=== PATIENT | female | born 1930 | race Caucasian/White ===

== ENCOUNTER 2017-06-20 13:30 | Observation (INO) | payer MEDICARE, MEDICAID ==
[~2017-06-20] VITALS: Ht 152.4 cm; Wt 39.6 kg
[~2017-06-20 13:30] MED LIST: AEROSOL THERAPY1 DEV XX; ALDACTONE 25MG25 MG PO; ALDACTONE25 MG PO; AMOXICILLIN500 M2 PO; ASPIRIN 81MG TA81 MG PO; ASPIRIN325 M1 PO; B-12500 MCG PO; BISOPROLOL 5MG T5 MG PO; CARDIZEM CD120 MG PO; CEFTIN500 MG PO; CEPHALEXIN MON500 MG PO; CEPHALEXIN500 MG PO; CHEWABLE ASPIRI81 MG PO; CLARITHROMYCIN500 M2 PO; CLARITIN10 MG OR; CORAL CALCIUM 51 CAP PO; CREON 120000 U-1 ECC PO; DIGOXIN0.125 MG PO; DILTIAZEM CD120 MG PO; DILTIAZEM ER 1120 MG PO; DILTIAZEM120 MG PO; DILTIAZEM30 MG PO; DIOVAN80 MG PO; DYAZIDE CAP (M1 EACH PO; FERREX 150150 MG PO; FERROUS SULFAT325 M1 PO; FERROUS SULFAT325 M2 PO; FORTICAL200 IU/ACT IH; FUROSEMIDE 20MG20 MG PO; HYDROCHLOROTH12.5 M1 PO; HYDROCHLOROTHIA25 M1 PO; IMDUR 30MG. TAB30 MG PO; INCRUSE EL62.5 MCG/A IH; ISOSORBIDE MONO30 MG PO; Isosorbide Mono60 MG PO; KLOR-CON 1010 ME1 PO; KLOR-CON 1010 MEQ PO; LEADER NATURA500 MCG PO; LEVAQUIN500 MG PO; LEVOTHYROXIN0.075 M1 PO; LORATADINE 10MG10 M1 PO; LORATADINE10 M1 PO; MAG-OX 400MG T400 MG PO; MAXZIDE 25 MG-31 TAB PO; MEDROL 4MG. DOSE4 MG PO; METOCLOPRAMIDE5 MG PO; METROGEL VA; MIRALAX17 GM/PACK PO; MUCINEX600 MG PO; MULTI VITAMINS1 TAB PO; MULTI-DAY VITA1 EACH PO; MULTIVITAMIN1 TAB PO; NEURONTIN100 MG OR; NITROGLYCERIN0.4 M1 SL; NITROGLYCERIN0.4 MG SL; OMEPRAZOLE20 M1 PO; OMEPRAZOLE20 MG PO; OXYGEN4 IH; PERIDEX OR1 DOSE/473 MT; PERIDEX OR1 DOSE/473 PO; PHENERGAN 25MG.25 MG PR; PLAVIX75 MG PO; POTASSIUM CHLO10 ME3 PO; PREDNISONE 5MG.5 MG PO; PREDNISONE1 MG PO; PREDNISONE5 MG PO; PRILOSEC20 MG PO; PROBIOTIC1 EAC5 PO; PROMETHAZINE5 ML/UDC PO; ROSADAN 0.75% TP; SENNA LAXATIVE8.6 MG PO; SPIRIVA HA1 PUFF/INH IH; SYNTHROID0.075 MG PO; SYNTHROID0.088 M3 PO; TUDORZA PR400 MCG/Ac IH; VENTOLIN H0.09 MG/AC IH; VENTOLIN H0.09 MG/Ac IH; VIT B 12 OR; VIT D OR; VITAMIN D1000 IU PO; VITAMIN E 400400 IU PO; ZANTAC 150150 MG OR; ZITHROMAX 250M250 MG PO; [UNRECOGNIZED DRUG - OTHER] RC
[2017-06-20 13:31] VITALS: BP 149/64
--- NOTE | 2017-06-20 13:45 | Emergency Room Report ---
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 Clinical Suspician of Infection? Mental Status: Sepsis Risk: Have you (or family members/close friends) recently traveled outside the [place]? If Yes, where/when: Have you had exposure to infectious disease within the past month? TB? Other? Specify: 86 years old white female was brought to the ED because of low blood pressure upon arrival of EMS found her blood pressure 146MMHG. The patient is well known history of congestive heart failure she is on diuretics. She was having a bowel movement when she felt dizzy. He denies chest pain,PALPITATION, shortness of air or nausea. She has daily bowel movements today was a little difficult yet to use milk of magnesia. She denies vomiting coffee-ground emesis and melanotic stool or bleeding per rectum. HISTORY BY WHO HAS JUST ARRIVED : I was told that the patient was having a bowel movement and she almost passed out up from the daughter arrival she was diaphoretic she checked the blood pressure was 52 complaining of her chest being burning. Later on she vomited twice. The patient recovered and she remained stable in the limbus arrived. Source patient, RN notes reviewed, family, EMS Exam Limitations no limitations ALLERGIES Coded Allergies: diatrizoate sodium (From HYPAQUE) (Severe, Q-[id number]/THROAT 08/22/16) Influenza Virus Vaccines (Intermediate, I-ITCHING 08/22/16) levofloxacin (From LEVAQUIN) (Intermediate, I-RASH 08/22/16) Sulfa (Sulfonamide Antibiotics) (Mild, NA-NAUSEA/VOMITING 08/22/16) codeine (Mild, "HEADACHE" 08/22/16) mometasone furoate (From NASONEX) (08/22/16) Home Medications Active Scripts NEBULIZER (Compact Compressor Nebulizer) 1 UNIT XX UD #1 DEV Prov: 12/18/16 Isosorbide Mononitrate (Isosorbide Mononitrate ER) 30 MG PO DAILY #45 TAB Ref 2 Prov: 08/23/16 Reported Medications Device (Oxygen, WALL UNIT) 1 UNIT IH CONSTANT Spironolactone (Aldactone) 25 MG PO DAILY Levothyroxine Sodium (Synthroid) 0.088 MG PO DAILY Polyethylene Glycol 3350 (Miralax) 17 GM PO DAILY ALBUTEROL (Ventolin Hfa) 2 PUFFS IH Q6H6 Multivitamin (Multi-Day Vitamins) 1 EACH PO DAILY POTASSIUM CHL (Potassium Chloride) 10 MEQ PO BID Bacillus Coagulans (Probiotic) 1 EACH PO DAILY PROMETHAZINE W/CODEINE (Promethazine-Codeine Syrup) 5 ML PO Q6PRN PRN COUGH MAGNESIUM OXIDE (Magnesium Oxide) 400 MG PO QHS ASPIRIN (Aspirin) 81 MG PO DAILY UMECLIDINIUM BROMIDE (Incruse Ellipta) 62.5 MCG IH DAILY CYANOCOBALAMIN (VITAMIN B-12) (Vitamin B-12) 500 MCG PO DAILY CHOLECALCIFEROL (VITAMIN D3) (Vitamin D3) 1,000 IUNITS PO DAILY CHLORHEXIDINE GLUCONATE (PERIDEX 0.12% ORAL RINSE) 1 DOSE PO TIDP PRN ORAL LESIONS Ferrous Sulfate (Ferrous Sulfate 325MG) 325 MG PO BID NITROGLYCERIN (Nitrostat) 0.4 MG SL [id number] PRN CHEST PAIN DILTIAZEM HCL (Diltiazem 24HR ER) 240 MG PO DAILY Furosemide (Furosemide) 20 MG PO BID Loratadine (Loratadine 10MG Tablet) 10 MG PO DAILYP PRN ALLERGIES BISOPROLOL FUMARATE (Bisoprolol 5MG) 2.5 MG PO QHS AND NOON Metronidazole (Rosadan) 0.75 TP PRN PRN ROSACEA History Medical History General CAD? Yes Angina: Yes [place]: No Hypertension? Yes Hyperlipidemia? No CHF? No DVT? No PE? No COPD? Yes Asthma? No Anemia? No GERD? Yes Gastric ulcers? No GI Bleed? No Hernia? No Thyroid Problems? Yes Hypothyroidism? Yes CVA? Yes Seizures? No Diabetes? No Renal Insuffiency? Yes End Stage Renal Disease? No UTI? Yes Stones? No BPH? No GB Disease: No Nephritic Syndrome? No Asplenia? No Hepatitis? No Sickle Cell Disease? No Arthritis? Yes Migraines? No Cataracts? Yes Glaucoma? No MRSA? No HIV? No TB? No Anxiety? Yes Depression? Yes Cancer? Yes Site: SKIN CANCER More? Yes Additional hx: 1. AFIB 2. Positive MARY 3. Amaurosis Fugax Immunization Hx DT/Tetanus 5-10 Years Ago Flu [id number] Pneumonia Received In Past Surgical Hx Previous Surgery?Y LEFT BREAST BIOPSY RIGHT OVARIAN CYST SURGERY FOR POST Family History Family Hx Diabetes Yes CAD Yes Hypertension Yes Hyperlipidemia Yes Cancer Yes TB No Social History Smoking Hx Packs/day N/A Alcohol Alcohol: No Review of Systems All Other Systems Reviewed and Negative Constitutional no symptoms reported Eyes no symptoms reported ENT no symptoms reported. Respiratory see HPI, cough Cardiovascular no symptoms reported Gastrointestinal see HPI, constipation Genitourinary no symptoms reported. Musculoskeletal no symptoms reported Skin no symptoms reported Psychiatric/Neurological no symptoms reported Physical Exam Vital Signs Vital Signs Date Time Temp Pulse Resp B/P Pulse O2 O2 Flow FiO2 Ox Delivery Rate 06/20 1408 98.1 64 18 145/66 99 06/20 1400 64 145/66 06/20 1359 63 144/68 06/20 1359 60 146/54 06/20 1331 98.1 70 18 149/64 99 - WBC >12,000 or <4,000 or 10% bands? 2 or more SIRS Criteria Met? B/P:149/64 MAP: Creatinine >2.0? UA output<0.5ml/kg/hr for 2 hrs? Platelet count >100,000? Lactate >2.0mmol/1? INR >1.2 or PTT > than 60 sec? Evidence of Organ Dysfunction? Provider documented clinical suspician of infection? N Sepsis Criteria Count: 0 Sepsis Risk: Low Sepsis Risk General Appearance normal appearance, WD/WN Eye Exam - bilateral eye normal exam, bilateral eye PERRL, bilateral eye EOMI Ear, Nose, Throat hearing grossly normal, normal ENT inspection Neck normal inspection, non-tender, supple, full range of motion Respiratory Status Yes: trachea midline, chest symmetrical, non tender chest. No: respiratory distress. Lung Sounds bilateral: normal breath sounds, lungs clear. Cardiovascular normal exam, regular rate/rhythm, no peripheral edema, no gallop, no JVD, no murmur, no rub, normal peripheral pulses Peripheral Pulses Pulses normal Yes Gastrointestinal normal bowel sounds, normal exam, non tender, soft, no organomegaly Back normal inspection, no CVA tenderness, no vertebral tenderness Extremities non-tender, normal range of motion, normal inspection Rectal normal exam, normal rectal tone Nurse present during exam? 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 No Medical Decision Making LABS/Meds/Orders Pt receiving controlled substance in ED? No Results/Orders Laboratory Tests 06/20/17 1400: Sodium 136, Potassium 5.4 H, Chloride 98, Carbon Dioxide 34 H, BUN 50 H, Creatinine 1.4 H, Estimated Creat Clear 18 L, Estimated GFR (MDRD) 36 L, Glucose 100, Calcium 9.0, Magnesium 2.4 H, Total Bilirubin 0.3, AST 13 L, ALT 21, Alkaline Phosphatase 80, Creatine Kinase 19 L, CK-MB (CK-2) Rel Index 2.6, CK and CKMB Interp < 0.5, Troponin I < 0.02, Total Protein 6.5, Albumin 3.4, Globulin 3.1, Albumin/Globulin Ratio 1.1, WBC 10.5, RBC 3.87 L, Hgb 12.0 L, Hct 36.6 L, MCV 94.7, RDW 13.1, Plt Count 275, MPV 7.9, Gran % 72.7, Gran # 7.6 , Lymphocytes % 16.9, Monocytes % 9.0, Eosinophils % 1.2, Basophils % 0.2, Lymphocytes # 1.8, Monocytes # 0.9, Eosinophils # 0.1, Basophils # 0.0, PUBS MCHC 32.6, MCH 30.9 Current Medication Orders Sig/Anna Start time Last Medication Dose Route Stop Time Status Admin Sodium Chloride 1,000 ML .Q1H1M 06/20 1345 DC 06/20 IV 06/20 1445 1402 Sodium Chloride 10 ML PRN PRN 06/20 1345 AC IV 06/21 1338 Orders Procedure Date/time Status Decision to admit 06/20 1505 Active URINALYSIS/COMPLETE 06/20 1431 Active DRUG ABUSE SCREEN (10) 06/20 1431 Active ELECTROCARDIOGRAM REQUEST 06/[address] HEAD REQ 06/20 1337 Complete CHEST(2 VIEWS-NOT PORTABLE) 06/20 1337 Active ABDOMEN-FLAT & UPRIGHT 06/20 1337 Active ORTHOSTATIC B/P 06/20 1337 Active MAGNESIUM 06/20 1337 Complete CBC WITH AUTO DIFF 06/20 1337 Complete CARDIAC ENZYMES 06/20 1337 Complete CHEM 12 PROFILE 06/20 1337 Complete 12 LEAD EKG-BESSON (INITIAL) 06/20 UNK Active Departure Departure Time of Disposition 1342 Disposition Still a Patient Clinical Impression Primary Impression: Pre-syncope Secondary Impressions: Atypical chest pain Condition STABLE Referrals Pravin BRENNAN,Pamela Matthews (Family) Additional Instructions I discussed her KUB with Dr. Rice who agrees that the bowels are dilated but does not suggest an obstruction. I discussed with Dr Costello who agreed to observe her on clear liquids and rule her out for arrythmia and cardiac events. The patietn remained stable and admitted in a stable conditon. Dr. Mullen Discharge Counseling Counseled pt/family regarding diagnosis, medications/RX, home care, follow up needs ED Critical Care Critical Care No If Critical Care minutes are documented, the time involved in the performance of seperately reportable procedures was not counted toward critical care time documented. I directly delivered medical care to this critically ill and/or injured patient. Timely evaluation and treatment was necessary to address the significant organ system(s) dysfunction present in this patient.
[2017-06-20 14:11] LABS: LYMPH # 1.8 K/mm3 (0.7-4.5); LYMPH % 16.9 % (10-50.0)
[2017-06-20 14:31] LABS: BUN 50 mg/dL (7-18)
[2017-06-20 14:36] LABS: GFR (ESTIMATED) 36 ML/MIN (59-)
--- NOTE | 2017-06-20 14:58 | RADIOLOGY REPORT PS360 ---
CT HEAD W/O CONTRAST HISTORY: Presyncope PRESYNCOPE ORDERING PHYSICIAN: Fabricio Mullen MD PATIENT AGE: 86 years COMPARISON: None TECHNIQUE: Axial images obtained without contrast. Brain and bone windows reviewed. FINDINGS: No midline shift, mass effect, intracranial hemorrhage, hydrocephalus, or extra-axial fluid collection is evident. There are mild periventricular ischemic gliotic changes. The calvarium has an unremarkable appearance. Minimal opacification noted in some of the inferior mastoid air cells. The visualized paranasal sinuses are unremarkable. IMPRESSION: 1. No acute intracranial pathology. 2. Minimal mastoid sinus disease
--- NOTE | 2017-06-20 15:35 | RADIOLOGY REPORT PS360 ---
ABDOMEN-FLAT UPRIGHT HISTORY: Abdominal pain COPUGH AND PRESYNCOPE ORDERING PHYSICIAN: Fabricio Mullen MD PATIENT AGE: 86 years COMPARISON: None FINDINGS: There is nonspecific bowel gas pattern with gas-filled loops of small bowel and large bowel in the mid abdominal region. Gas is present within the colon. No free air. No acute bony anomalies. There is vascular calcification. IMPRESSION: Nonspecific bowel gas pattern without air-fluid levels. Possible ileus
--- NOTE | 2017-06-20 15:37 | RADIOLOGY REPORT PS360 ---
CHEST(2 VIEWS-NOT PORTABLE) HISTORY: COPUGH AND PRESYNCOPE ORDERING PHYSICIAN: Fabricio Mullen MD PATIENT AGE: 86 years COMPARISON: 12/17/2016 FINDINGS: Normal heart size. There is chronic blunting of the CP angle on both sides. Mitral valve annular calcifications are present. There are chronic changes in the right middle lobe with thickening of the major fissure inferiorly. There is kyphosis of the thoracic spine with mild wedging of several dorsal vertebral bodies unchanged. IMPRESSION: Chronic changes, no acute finding
[2017-06-20 16:12] VITALS: BP 163/64
[2017-06-20 16:15] VITALS: BP 163/64
--- NOTE | 2017-06-20 19:53 | HISTORY AND PHYSICAL REPORT ---
History and Physical ([facility]) Date of admission: 06/20/17 Chief complaint: This 86-year-old white female was admitted with a near syncopal episode. She states that she ate lunch today and then was going to the toilet and became ill and felt that she was going to pass out. Indeed she did black out. Her daughter tried to check her blood pressure and found it quite low. She did not vomit on her pulse, however the patient does tend to run a low pulse and a variable pulse. She has known coronary artery disease. She takes diltiazem and is open to all both of which affect her heart rate and rhythm, of course. She will occasionally skip a dose of the bisoprolol if her heart rate is found to be low. She also takes diuretic, both spironolactone and furosemide. Her studies in the emergency room did show evidence of some renal insufficiency and her potassium was elevated at 5.4. In addition to her cardiac issues she has some chronic obstructive pulmonary disease as well. Lately her breathing has been pretty good. Past Medical History: Medical History: CAD? Yes Angina: Yes [place]: No Hypertension? Yes Hyperlipidemia? Yes CHF? Yes DVT? No PE? No COPD? Yes Asthma? No Anemia? Yes (takes ferrous gluconate) GERD? Yes Gastric ulcers? No GI Bleed? Yes (suspected) Hernia? No Thyroid Problems? Yes (TSH low at 0.346 06/14/17) Hypothyroidism? Yes CVA? No (amaurosis fugax) Seizures? No Diabetes? No Renal Insuffiency? Yes UTI? Yes Stones? No BPH? No GB Disease: No Nephritic Syndrome? No Asplenia? No Hepatitis? No Sickle Cell Disease? No Arthritis? Yes Migraines? No Cataracts? Yes Glaucoma? No MRSA? No HIV? No TB? No Anxiety? Yes Depression? Yes Cancer? Yes Site: SKIN CANCER More? Yes Additional hx: 1. AFIB paroxysmal 2. Positive MARY 3. Amaurosis Fugax Additional medical history: -20-49 percent carotid stenosis bilaterally June 03, 2014 -October 19, 2012 CT scan "liver spleen pancreas and gallbladder appear grossly normal" -February 23, 2008 positive MARY - Gout with Uric Acid 7.8 on 06/14/2017 Surgical history: Previous Surgery?Y 1. LEFT BREAST BIOPSY 2. RIGHT OVARIAN CYST 3. SURGERY FOR POST hemorrhage Medications: Active Scripts NEBULIZER (Compact Compressor Nebulizer) 1 UNIT XX UD #1 DEV Prov: 12/18/16 Isosorbide Mononitrate (Isosorbide Mononitrate ER) 30 MG PO DAILY #45 TAB Ref 2 Prov: 08/23/16 Reported Medications Device (Oxygen, WALL UNIT) 1 UNIT IH CONSTANT Spironolactone (Aldactone) 25 MG PO DAILY Levothyroxine Sodium (Synthroid) 0.088 MG PO DAILY Polyethylene Glycol 3350 (Miralax) 17 GM PO DAILY ALBUTEROL (Ventolin Hfa) 2 PUFFS IH Q6H6 Multivitamin (Multi-Day Vitamins) 1 EACH PO DAILY POTASSIUM CHL (Potassium Chloride) 10 MEQ PO BID Bacillus Coagulans (Probiotic) 1 EACH PO DAILY PROMETHAZINE W/CODEINE (Promethazine-Codeine Syrup) 5 ML PO Q6PRN PRN COUGH MAGNESIUM OXIDE (Magnesium Oxide) 400 MG PO QHS ASPIRIN (Aspirin) 81 MG PO DAILY UMECLIDINIUM BROMIDE (Incruse Ellipta) 62.5 MCG IH DAILY CYANOCOBALAMIN (VITAMIN B-12) (Vitamin B-12) 500 MCG PO DAILY CHOLECALCIFEROL (VITAMIN D3) (Vitamin D3) 1,000 IUNITS PO DAILY CHLORHEXIDINE GLUCONATE (PERIDEX 0.12% ORAL RINSE) 1 DOSE PO TIDP PRN ORAL LESIONS Ferrous Sulfate (Ferrous Sulfate 325MG) 325 MG PO BID NITROGLYCERIN (Nitrostat) 0.4 MG SL Q6DIOSOT PRN CHEST PAIN DILTIAZEM HCL (Diltiazem 24HR ER) 240 MG PO DAILY Furosemide (Furosemide) 20 MG PO BID Loratadine (Loratadine 10MG Tablet) 10 MG PO DAILYP PRN ALLERGIES BISOPROLOL FUMARATE (Bisoprolol 5MG) 2.5 MG PO QHS AND NOON Metronidazole (Rosadan) 0.75 TP PRN PRN ROSACEA Allergies: Coded Allergies: diatrizoate sodium (From HYPAQUE) (Severe, E-[id number]/THROAT 08/22/16) Influenza Virus Vaccines (Intermediate, I-ITCHING 08/22/16) levofloxacin (From LEVAQUIN) (Intermediate, I-RASH 08/22/16) Sulfa (Sulfonamide Antibiotics) (Mild, NA-NAUSEA/VOMITING 08/22/16) codeine (Mild, "HEADACHE" 08/22/16) mometasone furoate (From NASONEX) (08/22/16) Family History: Family history: Postive for: CAD, HTN. Additional family history: 3 brothers and one sister. One son, 2 daughters Social History: Smoking Hx Tobacco: No Smoker: Never Smoker Type: Cigarettes Packs/day: 1 1/2 - 2 Packs Are you exposed to second hand No Alcohol: Alcohol: No Hx of Drug Use: Drug Use? No Patien't marital status is: spouse Patient's support system is: excellent (daughter) Review of Systems: Patient unresponsive? No Constitutional Positive for: weak, recent weight loss. No: chills, fatigue, lethargy, malaise. ENT No: mouth pain, nasal congestion, ear ringing, throat swelling, tongue swelling. Cardiovascular Positive for: STEPHEN, chest pain, edema, palpitations. Respiratory Positive for: dyspnea on exertion, shortness of air. No: hemoptysis, pleurisy, pneumonia, productive cough (sputum). GI Positive for: abdominal pain (bloating when she eats), anorexia. (female) No: frequency, vaginal bleeding. Skin Positive for: bruising, swelling. No: laceration, rash. Neurological Positive for: change in LOC, bowel dysfunction, dizziness, light headed, syncope , vision change, weakness. No: confusion, seizure. Immune/allergy Positive for: allergy. Eyes Positive for: vision loss. No: blurry vision, diploplia. Musculoskeletal Positive for: extremity swelling, joint pain, neck pain. Heme Positive for: bruising. Endocrine No: polydipsia. Psychiatric Positive for: anxious. No: agitation, confused, change in mental status. Physical Exam: Vital signs: 1ST Vital Signs Result Date Time Pulse Ox 99 06/20 1331 B/P 149/64 06/20 1331 Temp 98.1 06/20 1331 Pulse 70 06/20 1331 Resp 18 06/20 1331 O2 Delivery OXYGEN 06/20 1612 Exam: General appearance: alert, no acute distress Eyes: anicteric, PERRLA ENT: mucous membranes moist Neck: no JVD Cardiovascular: bradycardia Respiratory: clear to auscultation, no respiratory distress, diminished breath sounds ABD: soft, no tenderness, distended (slightly) Genitourinary: normal voiding & quantity Extremities: no peripheral edema (minimal at this time) Musculoskeletal: motor intact Skin: dry, intact Neuro: alert, no deficit, oriented, speech clear Lab data: Labs: Laboratory Tests 06/20/17 1400: Sodium 136, Potassium 5.4 H, Chloride 98, Carbon Dioxide 34 H, BUN 50 H, Creatinine 1.4 H, Estimated Creat Clear 18 L, Estimated GFR (MDRD) 36 L, Glucose 100, Calcium 9.0, Magnesium 2.4 H, Total Bilirubin 0.3, AST 13 L, ALT 21, Alkaline Phosphatase 80, Creatine Kinase 19 L, CK-MB (CK-2) Rel Index 2.6, CK and CKMB Interp < 0.5, Troponin I < 0.02, Total Protein 6.5, Albumin 3.4, Globulin 3.1, Albumin/Globulin Ratio 1.1, WBC 10.5, RBC 3.87 L, Hgb 12.0 L, Hct 36.6 L, MCV 94.7, RDW 13.1, Plt Count 275, MPV 7.9, Gran % 72.7, Gran # 7.6 , Lymphocytes % 16.9, Monocytes % 9.0, Eosinophils % 1.2, Basophils % 0.2, Lymphocytes # 1.8, Monocytes # 0.9, Eosinophils # 0.1, Basophils # 0.0, PUBS MCHC 32.6, MCH 30.9 Radiology results: Results: The ER doctor was concerned about her abdominal series but it was read as unremarkable by the radiologist Diagnosis(es): 1. Syncope Status: Acute 2. Chronic lung disease Status: Chronic 3. Paroxysmal atrial fibrillation Status: Chronic 4. Renal insufficiency Status: Chronic 5. Hyperkalemia Status: Acute 6. Vasovagal episode Plan: IV fluids. DC supplemental potassium. Adjust medications accordingly at 1953
[2017-06-20 20:00] VITALS: BP 158/63
[2017-06-20 20:15] VITALS: BP 158/63
[2017-06-20 23:51] VITALS: BP 155/62
[2017-06-21 04:24] VITALS: BP 133/45
[2017-06-21] MEDS ORDERED: LOSARTAN POTASS25 MG PO (08:21)
[2017-06-21 08:30] VITALS: BP 161/52
--- NOTE | 2017-06-21 08:32 | ACUTE CARE PROGRESS NOTE (QUA) ---
Progress Notes Subjective Date 06/21/17 Time 0735 Note Pt resting quietly in bed with daughter at bedside. She reports she is feeling better this morning, no further episodes. She has a productive cough, denies CP or SOB with O2 in place per NC. She tolerated breakfast of clear liquids well. She has been up to the bedside commode to void overnight without difficulty. Objective Findings Last VS-Temp:98.3 B/P:133/45 Pulse:53 Resp:18 SaO2:98 OXYGEN Last weight lbs:87 oz:6 K.633 Method:Bed Scales Vital Signs Date Time Temp Pulse Resp B/P Pulse O2 O2 Flow FiO2 Ox Delivery Rate 06/21 0700 2 06/21 0626 2 06/21 0626 98 OXYGEN 2 06/21 0600 2 06/21 0535 2 06/21 0424 98.3 53 18 133/45 98 OXYGEN 06/21 0302 2 06/21 0200 2 06/21 0104 2 06/20 2357 2 06/20 2351 2 06/20 2351 97.8 53 22 155/62 100 OXYGEN 2 06/20 2249 98 OXYGEN 2 06/20 2200 2 06/20 2100 2 06/20 2039 2 06/20 2039 2 06/20 2039 98 2 06/20 2039 98 OXYGEN 2 06/20 2015 98.4 58 24 158/63 98 2 06/20 2000 98.4 58 24 158/63 98 OXYGEN 06/20 1615 58 06/20 1615 97.9 58 28 163/64 06/20 1615 96 OXYGEN 06/20 1615 97.9 58 28 163/64 96 OXYGEN 06/20 1612 97.9 58 28 163/64 96 OXYGEN 06/20 1535 98.1 64 18 133/68 99 /14 1526 98.1 64 18 133/68 99 /14 1408 98.1 64 18 145/66 99 /14 1400 64 145/66 /14 1359 63 144/68 14 1359 60 146/54 06/20 1331 98.1 70 18 149/64 99 Exam General appearance: alert, awake, no acute distress Cardiovascular: normal peripheral pulses, irregular Respiratory: CTAB A&P, generally diminished ABD: non-distended, no rebound, soft, no tenderness, no guarding, no organomegaly, no palpable mass, bowel sounds present Extremities: moves all, no peripheral edema Neuro: alert, oriented, speech clear, no focal deficit Reviewed: vital signs, lab results, radiology report, nursing notes Assessment/Plan Problem List 1. Syncope Status: Acute 2. Chronic lung disease Status: Chronic 3. Paroxysmal atrial fibrillation Status: Chronic 4. Renal insufficiency Status: Chronic 5. Hyperkalemia Status: Acute 6. Vasovagal episode Patient condition Improving Plan: continue current care This inpt stay is expected to cross 2 MNs from start of care Yes (EVA MILLER APRN) Assessment/Plan Problem List 1. Syncope Status: Acute 2. Chronic lung disease Status: Chronic 3. Paroxysmal atrial fibrillation Status: Chronic 4. Renal insufficiency Status: Chronic 5. Hyperkalemia Status: Acute 6. Vasovagal episode 7. Dehydration This inpt stay is expected to cross 2 MNs from start of care No Comments: Patient feels better today, labs have improved, plan discharge home today with decreased dose of diuretics. Patient seems to have been over diuresed. Plan office f/u in 1 week. (Everett Haas MD) at 0831 at 0849
[2017-06-21] MEDS ORDERED: SPIRONOLACTONE25 M1 PO (08:54)
[2017-06-21] MEDS ORDERED: FUROSEMIDE20 MG PO (08:55)
[2017-06-21 09:55] VITALS: BP 161/52
--- OUTSIDE RECORDS SUMMARY | 2017-07-16 07:44 | External Medical Summary Rpt ---
Author Author , GEOFF TELLEZ Address Unknown Phone [email or web address] Team Providers Care Stretcher Operator Name Role Phone Zayra WALLER, Unavailable Unavailable Zayra Costello MD, Unavailable Unavailable Gila Joshi CARE MANAGEMENT ASSISTANT, Unavailable Unavailable Nimco Joshi APRN [facility] Unavailable Unavailable HOLDINGS, [facility] Unavailable Unavailable [facility]INGS, [facility] Unavailable Unavailable EQUIPME, [facility] Unavailable Unavailable EQUIPME, [facility] Purpose Continuity of Care Document - 12-31-2012 through 2016 Problems Code Diagnosis DOS Provider Status J449 CHRONIC 12-24-[address] [facility] [place] PULMONARY MEDICAL DISEASE UNS EQUIPME J439 EMPHYSEMA 12-16-2015 [facility]PEC[facility] 244.9 Hypothyroid [facility] 276.8 Hypokalemia [facility] [id number] Chest pain [facility] 427.9 Atrial [place] arrhythmia [facility] 486 Pneumonia [facility] 496 Acute [facility] chronic obstructive airways disease 518.89 Chronic [place] lung [facility] Allergies, Adverse Reactions, Alerts Type Drug Allergy Adverse Reaction to Substance Substance Reaction Severity Contrast Media, Unknown Unknown Iodine Related SULFA (sulfonamide) Unknown Unknown Codeine Unknown Unknown Trimethoprim Unknown Unknown Tetanus Toxoid Unknown Unknown Sulfamethoxazole Unknown Unknown Medications Na ND Rx Da Fi Fi Am Da Di Ph RX Ph St me C No te ll ll ou ys ag ar # ys at rm s nt no ma ic us Or Da si cy ia de te s n re d DI 51 07 0 No LT 07 -1 IA 90 4- Lo ZE 74 20 ng M 52 13 er 30 0 Ac MG ti ve TA BL ET Di 62 07 0 No go 58 -1 xi 40 3- Lo n 98 20 ng 0. 90 13 er 12 1 5M Ac G ti Ta ve bl et BI 00 07 2 No SO 18 -1 WI 50 2- Lo OL 77 20 ng OL 13 13 er 0 FU Ac MA ti RA ve TE 5 MG TA B WI 00 07 2 No ED 05 -1 NI 40 2- Lo SO 01 20 ng NE 72 13 er 0 10 Ac ti MG ve TA BL ET Di 62 07 0 No go 58 -1 xi 40 2- Lo n 99 20 ng 0. 00 13 er 25 1 MG Ac ti Ta ve bl et DI 51 07 2 No LT 07 -1 IA 90 2- Lo ZE 74 20 ng M 52 13 er 30 0 Ac MG ti ve TA BL ET MA 00 07 0 No GN 51 -1 ES 72 2- Lo IU 60 20 ng M 22 13 er [place] 5 LF Ac AT ti E ve 50 % AL SO 00 07 0 No DI 40 -1 UM 97 2- Lo 98 20 ng CH 43 13 er LO 7 RI Ac DE ti ve 0. 9% SO SATNAM TI ON BI 00 07 0 No SO 18 -1 WI 50 1- Lo OL 77 20 ng OL 13 13 er 0 FU Ac MA ti RA ve TE 5 MG TA B Gu 63 07 4 No ai 82 -1 fe 40 0- Lo ne 00 20 ng si 84 13 er n 0 LA Ac ti 60 ve 0M G Ta bl et SO 00 07 3 No DI 40 -1 UM 97 0- Lo 98 20 ng CH 30 13 er LO 9 RI Ac DE ti ve 0. 9% SO SATNAM TI ON PO 00 07 1 No TA 40 -0 SS 99 9- Lo IU 25 20 ng M 73 13 er CL 9 Ac 20 ti ve ME Q- 0. 45 % NA CL Di 62 07 0 No go 58 -0 xi 40 9- Lo n 98 20 ng 0. 90 13 er 12 1 5M Ac G ti Ta ve bl et Po 00 07 0 No ta 24 -0 ss 50 9- Lo iu 05 20 ng m 80 13 er Ch 1 lo Ac ri ti de ve 20 ME Q Ta bl e Po 00 07 5 No ta 24 -0 ss 50 9- Lo iu 05 20 ng m 80 13 er Ch 1 lo Ac ri ti de ve 20 ME Q Ta bl e PA 07 5 No TI -0 EN 9- Lo T' 20 ng S 13 er OW N Ac HO ti ME ve ME DS PO 00 07 0 No TA 40 -0 SS 97 9- Lo IU 07 20 ng M 52 13 er CL 6 Ac 20 ti ve ME Q/ 10 0 ML SO L SO 00 07 1 No DI 40 -0 UM 97 8- Lo 98 20 ng CH 30 13 er LO 9 RI Ac DE ti ve 0. 9% SO SATNAM TI ON AL 00 07 0 No BU 48 -0 TE 79 8- Lo RO 50 20 ng L 10 13 er GOODSON 1 L Ac 2. ti 5 ve MG /3 [address] SO [address] Sa 63 07 6 No li 80 -0 ne 70 8- Lo 10 20 ng Fl 07 13 er us 5 h Ac 10 ti ML ve Sy ri ng e MA 00 07 6 No PA 90 -0 P 41 8- Lo 32 98 20 ng 5 26 13 er MG 1 Ac TA ti BL ve ET SO 00 07 4 No SATNAM 00 -0 -M 90 8- Lo ED 03 20 ng RO 92 13 er L 8 40 Ac ti MG ve AL 66 07 6 No PI 55 -0 RI 30 8- Lo N 00 20 ng 32 10 13 er 5 1 MG Ac ti TA ve BL ET Di 62 07 4 No go 58 -0 xi 40 8- Lo n 98 20 ng 0. 90 13 er 12 1 5M Ac G ti Ta ve bl et DI 51 07 4 No LT 07 -0 IA 90 8- Lo ZE 74 20 ng M 52 13 er 30 0 Ac MG ti ve TA BL ET TR 51 07 6 No IA 07 -0 MT 90 8- Lo ER 93 20 ng EN 52 13 er E- 0 HC Ac TZ ti ve 37 .5 -2 5 MG CP Is 68 07 6 No os 08 -0 or 40 8- Lo bi 43 20 ng de 50 13 er 1 Mo Ac no ti ni ve tr at e 30 MG Ta SY 00 07 6 No NT 07 -0 HR 45 8- Lo OI 18 20 ng D 21 13 er 75 1 Ac MC ti G ve TA BL ET PA 51 07 6 No NT 07 -0 OP 90 8- Lo RA 05 20 ng ZO 12 13 er LE 0 Ac SO ti D ve DR 40 MG TA B MT 11 07 6 No RA 52 -0 LA 37 8- Lo X 26 20 ng PO 80 13 er WD 8 ER Ac ti PA ve CK ET SP 00 07 6 No IR 59 -0 IV 70 8- Lo A 07 20 ng 18 57 13 er 5 MC Ac G ti CP ve -H AN DI GUZMAN LE R LO 00 07 6 No VE 07 -0 NO 50 8- Lo X 62 20 ng 40 04 13 er 1 MG Ac /0 ti .4 ve ML SY RI NG E BI 00 07 3 No SO 18 -0 WI 50 8- Lo OL 77 20 ng OL 13 13 er 0 FU Ac MA ti RA ve TE 5 MG TA B Di 62 07 0 No go 58 -0 xi 40 8- Lo n 98 20 ng 0. 90 13 er 12 1 5M Ac G ti Ta ve bl et Sa 63 06 0 No li 80 -2 ne 70 1- Lo 10 20 ng Fl 07 13 er us 5 h Ac 10 ti ML ve Sy ri ng e SO 00 03 0 No DI 40 -2 UM 97 7- Lo 98 20 ng CH 30 13 er LO 9 RI Ac DE ti ve 0. 9% SO SATNAM TI ON Sa 63 03 0 No li 80 -2 ne 70 7- Lo 10 20 ng Fl 07 13 er us 5 h Ac 10 ti ML ve Sy ri ng e ON 00 03 0 No DA 64 -2 NS 16 7- Lo ET 08 20 ng RO 02 13 er N 5 HC Ac L ti 4 ve MG /2 ML AL Vital Signs 04-19-2013 13:00 Name Value Interpretat Reference Comment ion Range Body 97.5 [degF] Temperature BP 56 mm[Hg] Diastolic BP Systolic 131 mm[Hg] Heart 59 /min Rate/Pulse Respiratory 24 /min Rate 04-19-2013 11:26 Name Value Interpretat Reference Comment ion Range O2% 100 % 04-13-2013 03:04 Name Value Interpretat Reference Comment ion Range Height 154.94 cm Weight 41.731 kg Measured 04-13-2013 01:05 Name Value Interpretat Reference Comment ion Range Body 98.4 [degF] Temperature BP 98 mm[Hg] Diastolic BP Systolic 149 mm[Hg] Heart 72 /min Rate/Pulse O2% 93 % Respiratory 20 /min Rate Weight 0 [oz_av] Measured 03-27-2013 14:22 Name Value Interpretat Reference Comment ion Range BP 67 mm[Hg] Diastolic BP Systolic 125 mm[Hg] Heart 97 /min Rate/Pulse O2% 96 % Respiratory 20 /min Rate 03-27-2013 12:33 Name Value Interpretat Reference Comment ion Range BP 64 mm[Hg] Diastolic BP Systolic 113 mm[Hg] Heart 98 /min Rate/Pulse O2% 93 % Respiratory 20 /min Rate 03-27-2013 16:04 Name Value Interpretat Reference Comment ion Range Body 98.2 [degF] Temperature BP 71 mm[Hg] Diastolic BP Systolic 160 mm[Hg] Heart 76 /min Rate/Pulse O2% 92 % Respiratory 16 /min Rate 12-31-2012 13:25 Name Value Interpretat Reference Comment ion Range BP 67 mm[Hg] Diastolic BP Systolic 147 mm[Hg] Heart 84 /min Rate/Pulse O2% 96 % Respiratory 20 /min Rate Results Labs Lab Lab Date Result Refere Interp Status Commen Order Detail nces retati t Range on Magnesium SerPl-mCnc (04-17-2013 08:55) Magnesi 1.7 1.4-2.2 complet um 013 mg/dL ed SerPl-m 08:55 Cnc BASIC METABOLIC PANEL (04-17-2013 08:50) Glucose 164 74-106 complet 013 mg/dL ed Bld-mCn 08:50 c BUN 14 7-18 complet Bld-mCn 013 mg/dL ed c 08:50 Creat 0.9 0.6-1.0 complet SerPl-m 013 mg/dL ed Cnc 08:50 ESTIMAT 32 50-200 complet ED 013 ML/MIN ed CREATIN 08:50 INE CLEARAN CE GFR 60 59- complet (ESTIMA 013 ML/MIN ed SPARKLE) 08:50 Sodium 04-17- 139 136-145 complet SerPl-s 013 mmoL/L ed Cnc 08:50 Potassi 3.9 3.5-5.1 complet um 013 mmoL/L ed SerPl-s 08:50 Cnc Chlorid 103 98-107 complet e 013 mmoL/L ed SerPl-s 08:50 Cnc CO2 31 21.0-32 complet SerPl-s 013 mmoL/L .0 ed Cnc 08:50 Calcium 8.2 8.5-10. complet 013 mg/dL 1 ed SerPl-m 08:50 Cnc Digoxin SerPl-mCnc (04-17-2013 08:50) Digoxin 0.56 1.15-2. complet 013 ng/mL 56 ed SerPl-m 08:50 Cnc BASIC METABOLIC PANEL (04-16-2013 06:30) Glucose 04-16- 129 74-106 complet 013 mg/dL ed Bld-mCn 06:30 c BUN 04-16- 12 7-18 complet Bld-mCn 013 mg/dL ed c 06:30 Creat 04-16- 0.8 0.6-1.0 complet SerPl-m 013 mg/dL ed Cnc 06:30 ESTIMAT 04-16- 36 50-200 complet ED 013 ML/MIN ed CREATIN 06:30 INE CLEARAN CE GFR 69 59- complet (ESTIMA 013 ML/MIN ed SPARKLE) 06:30 Sodium 137 136-145 complet SerPl-s 013 mmoL/L ed Cnc 06:30 Potassi 4.1 3.5-5.1 complet um 013 mmoL/L ed SerPl-s 06:30 Cnc Chlorid 104 98-107 complet e 013 mmoL/L ed SerPl-s 06:30 Cnc CO2 29 21.0-32 complet SerPl-s 013 mmoL/L .0 ed Cnc 06:30 Calcium 8.1 8.5-10. complet 013 mg/dL 1 ed SerPl-m 06:30 Cnc CBC with AUTO DIFF (04-16-2013 06:30) WBC # 11-2 8.6 4.8-10. complet Bld 013 K/MM3 8 ed Auto 06:30 RBC # 11-2 3.37 4.2-5.4 complet Bld 013 M/mm3 ed Auto 06:30 Hgb 04-16-2 10.2 12.2-16 complet Bld-mCn 013 g/dL .2 ed c 06:30 Hct Fr 31.5 % 37.0-47 complet Bld 013 .0 ed 06:30 MCV RBC 04-16- 93.7 fl 82.2-97 complet 013 .8 ed 06:30 MCH RBC 04-16- 30.2 pg 27-31.2 complet Qn 013 ed Auto 06:30 MEAN 32.3 31.8-35 complet CORPUSC 013 g/dl .4 ed ULAR 06:30 HGB CONC RDW RBC 07-11-2 15.9 % 11.5-17 complet Auto 013 .5 ed 06:30 Platele 07-11-2 235 142-424 complet t Bld 013 K/mm3 ed Ql 06:30 Manual MEAN 07-11-2 7.7 fl 7.4-10. complet PLATELE 013 4 ed T 06:30 VOLUME Granulo 07-11-2 92.3 % 37.0-80 complet cytes 013 .0 ed Fr Bld 06:30 Auto LYMPH % 07-11-2 4.4 % 10-50.0 complet 013 ed 06:30 Monocyt 07-11-2 3.2 % 1.7-9.3 complet es Fr 013 ed Bld 06:30 Auto Eosinop 07-11-2 0.1 % 0.1-12. complet hil Fr 013 0 ed Bld 06:30 Auto Basophi 07-11-2 0.0 % 0.1-2.0 complet ls Fr 013 ed Bld 06:30 Auto Granulo 07-11-2 7.9 1.8-7.8 complet cytes # 013 K/mm3 ed Bld 06:30 Auto Lymphoc 07-11-2 0.4 0.7-4.5 complet ytes Fr 013 K/mm3 ed Bld 06:30 Auto Monocyt 07-11-2 0.3 0.1-1.0 complet es # 013 K/mm3 ed Bld 06:30 Auto Eosinop 07-11-2 0.0 0.0-0.4 complet hil # 013 K/mm3 ed Bld 06:30 Auto Basophi 07-11-2 0.0 0-0.2 complet ls # 013 K/MM3 ed Bld 06:30 Auto COMPREHENSIVE METABOLIC PANEL (04-15-2013 06:20) Glucose -10-2 130 74-106 complet 013 mg/dL ed Bld-mCn 06:20 c BUN 0710-2 12 7-18 complet Bld-mCn 013 mg/dL ed c 06:20 Creat 10-2 1.0 0.6-1.0 complet SerPl-m 013 mg/dL ed Cnc 06:20 ESTIMAT 04-15-2 29 50-200 complet ED 013 ML/MIN ed CREATIN 06:20 INE CLEARAN CE GFR 10-2 53 59- complet (ESTIMA 013 ML/MIN ed SPARKLE) 06:20 Sodium 134 136-145 complet SerPl-s 013 mmoL/L ed Cnc 06:20 Potassi 4.7 3.5-5.1 complet um 013 mmoL/L ed SerPl-s 06:20 Cnc Chlorid 102 98-107 complet e 013 mmoL/L ed SerPl-s 06:20 Cnc CO2 24 21.0-32 complet SerPl-s 013 mmoL/L .0 ed Cnc 06:20 Calcium 8.2 8.5-10. complet 013 mg/dL 1 ed SerPl-m 06:20 Cnc Prot 6.2 6.4-8.2 complet SerPl-m 013 gm/dL ed Cnc 06:20 Albumin 3.1 3.4-5.0 complet 013 gm/dL ed SerPl-m 06:20 Cnc Globuli 3.1 1.3-3.2 complet n 013 gm/dL ed Ser-mCn 06:20 c Albumin 1.0 UNK 1.1-1.8 complet /Glob 013 ed SerPl-m 06:20 Rto Bilirub 0.2 0.2-1.0 complet 013 mg/dL ed SerPl-m 06:20 Cnc AST 28 U/L 15-37 complet SerPl-c 013 ed Cnc 06:20 ALT 55 U/L 30-65 complet SerPl-c 013 ed Cnc 06:20 ALP 86 U/L 50-136 complet SerPl-c 013 ed Cnc 06:20 Amylase SerPl-cCnc (04-15-2013 06:20) Amylase 04-15- 103 U/L 25-115 complet 013 ed SerPl-c 06:20 Cnc LIPASE (04-15-2013 06:20) LIPASE 04-15- 176 U/L 73-393 complet 013 ed 06:20 CBC with AUTO DIFF (04-15-2013 06:20) WBC # 07-10-2 16.9 4.8-10. complet Bld 013 K/MM3 8 ed Auto 06:20 RBC # 07-10-2 3.67 4.2-5.4 complet Bld 013 M/mm3 ed Auto 06:20 Hgb 07-10-2 11.0 12.2-16 complet Bld-mCn 013 g/dL .2 ed c 06:20 Hct Fr 07-10-2 35.0 % 37.0-47 complet Bld 013 .0 ed 06:20 MCV RBC 07-10-2 95.3 fl 82.2-97 complet 013 .8 ed 06:20 MCH RBC 07-10-2 30.0 pg 27-31.2 complet Qn 013 ed Auto 06:20 MEAN 07-10-2 31.5 31.8-35 complet CORPUSC 013 g/dl .4 ed ULAR 06:20 HGB CONC RDW RBC 07-10-2 16.0 % 11.5-17 complet Auto 013 .5 ed 06:20 Platele 07-10-2 268 142-424 complet t Bld 013 K/mm3 ed Ql 06:20 Manual MEAN 07-10-2 8.1 fl 7.4-10. complet PLATELE 013 4 ed T 06:20 VOLUME Granulo 07-10-2 94.7 % 37.0-80 complet cytes 013 .0 ed Fr Bld 06:20 Auto LYMPH % 07-10-2 3.2 % 10-50.0 complet 013 ed 06:20 Monocyt 07-10-2 2.0 % 1.7-9.3 complet es Fr 013 ed Bld 06:20 Auto Eosinop 07-10-2 0.1 % 0.1-12. complet hil Fr 013 0 ed Bld 06:20 Auto Basophi 07-10-2 0.0 % 0.1-2.0 complet ls Fr 013 ed Bld 06:20 Auto Granulo 07-10-2 16.0 1.8-7.8 complet cytes # 013 K/mm3 ed Bld 06:20 Auto Lymphoc 07-10-2 0.5 0.7-4.5 complet ytes Fr 013 K/mm3 ed Bld 06:20 Auto Monocyt 07-10-2 0.4 0.1-1.0 complet es # 013 K/mm3 ed Bld 06:20 Auto Eosinop 07-10-2 0.0 0.0-0.4 complet hil # 013 K/mm3 ed Bld 06:20 Auto Basophi 0.0 0-0.2 complet ls # 013 K/MM3 ed Bld 06:20 Auto Potassium SerPl-sCnc (04-14-2013 14:00) Potassi 3.9 3.5-5.1 complet um 013 mmoL/L ed SerPl-s 14:00 Cnc BASIC METABOLIC PANEL (04-14-2013 06:30) Glucose 142 74-106 complet 013 mg/dL ed Bld-mCn 06:30 c BUN 7 mg/dL 7-18 complet Bld-mCn 013 ed c 06:30 Creat 0.9 0.6-1.0 complet SerPl-m 013 mg/dL ed Cnc 06:30 ESTIMAT 32 50-200 complet ED 013 ML/MIN ed CREATIN 06:30 INE CLEARAN CE GFR 60 59- complet (ESTIMA 013 ML/MIN ed SPARKLE) 06:30 Sodium 138 136-145 complet SerPl-s 013 mmoL/L ed Cnc 06:30 Potassi 2.9 3.5-5.1 Low complet um 013 mmoL/L alert ed SerPl-s 06:30 Cnc Chlorid 101 98-107 complet e 013 mmoL/L ed SerPl-s 06:30 Cnc CO2 28 21.0-32 complet SerPl-s 013 mmoL/L .0 ed Cnc 06:30 Calcium 8.4 8.5-10. complet 013 mg/dL 1 ed SerPl-m 06:30 Cnc CBC with AUTO DIFF (04-14-2013 06:30) WBC # 04-14- 11.7 4.8-10. complet Bld 013 K/MM3 8 ed Auto 06:30 RBC # 04-14- 3.63 4.2-5.4 complet Bld 013 M/mm3 ed Auto 06:30 Hgb 11.1 12.2-16 complet Bld-mCn 013 g/dL .2 ed c 06:30 Hct Fr 34.1 % 37.0-47 complet Bld 013 .0 ed 06:30 MCV RBC 07-09-2 93.9 fl 82.2-97 complet 013 .8 ed 06:30 MCH RBC 04-14-2 30.6 pg 27-31.2 complet Qn 013 ed Auto 06:30 MEAN 04-14-2 32.6 31.8-35 complet CORPUSC 013 g/dl .4 ed ULAR 06:30 HGB CONC RDW RBC 04-14-2 15.9 % 11.5-17 complet Auto 013 .5 ed 06:30 Platele 04-14-2 252 142-424 complet t Bld 013 K/mm3 ed Ql 06:30 Manual MEAN 2 7.9 fl 7.4-10. complet PLATELE 013 4 ed T 06:30 VOLUME Granulo 09-2 93.8 % 37.0-80 complet cytes 013 .0 ed Fr Bld 06:30 Auto LYMPH % 07-09-2 4.5 % 10-50.0 complet 013 ed 06:30 Monocyt 07-09-2 1.7 % 1.7-9.3 complet es Fr 013 ed Bld 06:30 Auto Eosinop 07-09-2 0.0 % 0.1-12. complet hil Fr 013 0 ed Bld 06:30 Auto Basophi 07-09-2 0.0 % 0.1-2.0 complet ls Fr 013 ed Bld 06:30 Auto Granulo 07-09-2 10.9 1.8-7.8 complet cytes # 013 K/mm3 ed Bld 06:30 Auto Lymphoc 07-09-2 0.5 0.7-4.5 complet ytes Fr 013 K/mm3 ed Bld 06:30 Auto Monocyt 07-09-2 0.2 0.1-1.0 complet es # 013 K/mm3 ed Bld 06:30 Auto Eosinop 07-09-2 0.0 0.0-0.4 complet hil # 013 K/mm3 ed Bld 06:30 Auto Basophi 07-09-2 0.0 0-0.2 complet ls # 013 K/MM3 ed Bld 06:30 Auto THYROID STIM HORMONE (04-13-2013 06:20) THYROID 07-08-2 0.39 0.358-3 complet STIM 013 uIU/ml .740 ed HORMONE 06:20 Digoxin SerPl-mCnc (07-08-2013 06:20) Digoxin 07-08-2 0.62 1.15-2. complet 013 ng/mL 56 ed SerPl-m 06:20 Cnc Amylase SerPl-cCnc (04-13-2013 06:20) Amylase -08-2 134 U/L 25-115 complet 013 ed SerPl-c 06:20 Cnc LIPASE (04-13-2013 06:20) LIPASE 08-2 222 U/L 73-393 complet 013 ed 06:20 COMPREHENSIVE METABOLIC PANEL (04-13-2013 01:25) Glucose 07-08-2 88 74-106 complet 013 mg/dL ed Bld-mCn 01:25 c BUN 08-2 8 mg/dL 7-18 complet Bld-mCn 013 ed c 01:25 Creat -08-2 0.8 0.6-1.0 complet SerPl-m 013 mg/dL ed Cnc 01:25 GFR 08-2 69 59- complet (ESTIMA 013 ML/MIN ed SPARKLE) 01:25 Sodium 08-2 132 136-145 complet SerPl-s 013 mmoL/L ed Cnc 01:25 Potassi 07-08-2 3.9 3.5-5.1 complet um 013 mmoL/L ed SerPl-s 01:25 Cnc Chlorid 08-2 95 98-107 complet e 013 mmoL/L ed SerPl-s 01:25 Cnc CO2 08-2 30 21.0-32 complet SerPl-s 013 mmoL/L .0 ed Cnc 01:25 Calcium -08-2 8.4 8.5-10. complet 013 mg/dL 1 ed SerPl-m 01:25 Cnc Prot -08-2 6.4 6.4-8.2 complet SerPl-m 013 gm/dL ed Cnc 01:25 Albumin 07-08-2 3.5 3.4-5.0 complet 013 gm/dL ed SerPl-m 01:25 Cnc Globuli -08-2 2.9 1.3-3.2 complet n 013 gm/dL ed Ser-mCn 01:25 c Albumin -08-2 1.2 UNK 1.1-1.8 complet /Glob 013 ed SerPl-m 01:25 Rto Bilirub 07-08-2 0.3 0.2-1.0 complet 013 mg/dL ed SerPl-m 01:25 Cnc AST 07-08-2 22 U/L 15-37 complet SerPl-c 013 ed Cnc 01:25 ALT 07-08-2 40 U/L 30-65 complet SerPl-c 013 ed Cnc 01:25 ALP 07-08-2 86 U/L 50-136 complet SerPl-c 013 ed Cnc 01:25 BNP Bld-mCnc (04-13-2013 01:25) BNP 07-08-2 19 0-100 complet Bld-mCn 013 pg/mL ed c 01:25 CBC with AUTO DIFF (04-13-2013 01:25) WBC # 07-08-2 5.9 4.8-10. complet Bld 013 K/MM3 8 ed Auto 01:25 RBC # 07-08-2 3.92 4.2-5.4 complet Bld 013 M/mm3 ed Auto 01:25 Hgb 07-08-2 11.8 12.2-16 complet Bld-mCn 013 g/dL .2 ed c 01:25 Hct Fr 07-08-2 36.7 % 37.0-47 complet Bld 013 .0 ed 01:25 MCV RBC 07-08-2 93.5 fl 82.2-97 complet 013 .8 ed 01:25 MCH RBC 07-08-2 30.0 pg 27-31.2 complet Qn 013 ed Auto 01:25 MEAN 07-08-2 32.0 31.8-35 complet CORPUSC 013 g/dl .4 ed ULAR 01:25 HGB CONC RDW RBC 07-08-2 15.7 % 11.5-17 complet Auto 013 .5 ed 01:25 Platele 07-08-2 242 142-424 complet t Bld 013 K/mm3 ed Ql 01:25 Manual MEAN 07-08-2 7.6 fl 7.4-10. complet PLATELE 013 4 ed T 01:25 VOLUME Granulo 07-08-2 69.0 % 37.0-80 complet cytes 013 .0 ed Fr Bld 01:25 Auto LYMPH % 07-08-2 23.0 % 10-50.0 complet 013 ed 01:25 Monocyt 07-08-2 7.0 % 1.7-9.3 complet es Fr 013 ed Bld 01:25 Auto Eosinop 07-08-2 0.6 % 0.1-12. complet hil Fr 013 0 ed Bld 01:25 Auto Basophi 07-08-2 0.4 % 0.1-2.0 complet ls Fr 013 ed Bld 01:25 Auto Granulo 07-08-2 4.1 1.8-7.8 complet cytes # 013 K/mm3 ed Bld 01:25 Auto Lymphoc 07-08-2 1.4 0.7-4.5 complet ytes Fr 013 K/mm3 ed Bld 01:25 Auto Monocyt 07-08-2 0.4 0.1-1.0 complet es # 013 K/mm3 ed Bld 01:25 Auto Eosinop 07-08-2 0.0 0.0-0.4 complet hil # 013 K/mm3 ed Bld 01:25 Auto Basophi 07-08-2 0.0 0-0.2 complet ls # 013 K/MM3 ed Bld 01:25 Auto COMPREHENSIVE METABOLIC PANEL (03-27-2013 12:40) Glucose 03-27-2 130 74-106 complet 013 mg/dL ed Bld-mCn 12:40 c BUN 21-2 13 7-18 complet Bld-mCn 013 mg/dL ed c 12:40 Creat 03-27-2 0.9 0.6-1.0 complet SerPl-m 013 mg/dL ed Cnc 12:40 ESTIMAT 03-27-2 32 50-200 complet ED 013 ML/MIN ed CREATIN 12:40 INE CLEARAN CE GFR 03-27-2 60 59- complet (ESTIMA 013 ML/MIN ed SPARKLE) 12:40 Sodium 03-27-2 136 136-145 complet SerPl-s 013 mmoL/L ed Cnc 12:40 Potassi 03-27-2 3.3 3.5-5.1 complet um 013 mmoL/L ed SerPl-s 12:40 Cnc Chlorid 03-27-2 101 98-107 complet e 013 mmoL/L ed SerPl-s 12:40 Cnc CO2 03-27-2 30 21.0-32 complet SerPl-s 013 mmoL/L .0 ed Cnc 12:40 Calcium 03-27-2 8.2 8.5-10. complet 013 mg/dL 1 ed SerPl-m 12:40 Cnc Prot 03-27-2 6.2 6.4-8.2 complet SerPl-m 013 gm/dL ed Cnc 12:40 Albumin 03-27-2 3.2 3.4-5.0 complet 013 gm/dL ed SerPl-m 12:40 Cnc Globuli 03-27-2 3.0 1.3-3.2 complet n 013 gm/dL ed Ser-mCn 12:40 c Albumin 03-27-2 1.1 UNK 1.1-1.8 complet /Glob 013 ed SerPl-m 12:40 Rto Bilirub 03-27-2 0.4 0.2-1.0 complet 013 mg/dL ed SerPl-m 12:40 Cnc AST 03-27-2 14 U/L 15-37 complet SerPl-c 013 ed Cnc 12:40 ALT 03-27-2 38 U/L 30-65 complet SerPl-c 013 ed Cnc 12:40 ALP 03-27-2 78 U/L 50-136 complet SerPl-c 013 ed Cnc 12:40 CBC with AUTO DIFF (03-27-2013 12:40) WBC # 21-2 6.3 4.8-10. complet Bld 013 K/MM3 8 ed Auto 12:40 RBC # 21-2 3.61 4.2-5.4 complet Bld 013 M/mm3 ed Auto 12:40 Hgb 03-27-2 10.9 12.2-16 complet Bld-mCn 013 g/dL .2 ed c 12:40 Hct Fr 03-27-2 33.4 % 37.0-47 complet Bld 013 .0 ed 12:40 MCV RBC 03-27-2 92.5 fl 82.2-97 complet 013 .8 ed 12:40 MCH RBC 03-27-2 30.2 pg 27-31.2 complet Qn 013 ed Auto 12:40 MEAN 03-27-2 32.6 31.8-35 complet CORPUSC 013 g/dl .4 ed ULAR 12:40 HGB CONC RDW RBC 03-27-2 15.6 % 11.5-17 complet Auto 013 .5 ed 12:40 Platele 03-27-2 263 142-424 complet t Bld 013 K/mm3 ed Ql 12:40 Manual MEAN 06-21-2 7.5 fl 7.4-10. complet PLATELE 013 4 ed T 12:40 VOLUME Granulo 06-21-2 77.8 % 37.0-80 complet cytes 013 .0 ed Fr Bld 12:40 Auto LYMPH % 06-21-2 16.1 % 10-50.0 complet 013 ed 12:40 Monocyt 06-21-2 5.5 % 1.7-9.3 complet es Fr 013 ed Bld 12:40 Auto Eosinop 06-21-2 0.3 % 0.1-12. complet hil Fr 013 0 ed Bld 12:40 Auto Basophi 06-21-2 0.3 % 0.1-2.0 complet ls Fr 013 ed Bld 12:40 Auto Granulo 06-21-2 4.9 1.8-7.8 complet cytes # 013 K/mm3 ed Bld 12:40 Auto Lymphoc 06-21-2 1.0 0.7-4.5 complet ytes Fr 013 K/mm3 ed Bld 12:40 Auto Monocyt 06-21-2 0.4 0.1-1.0 complet es # 013 K/mm3 ed Bld 12:40 Auto Eosinop 06-21-2 0.0 0.0-0.4 complet hil # 013 K/mm3 ed Bld 12:40 Auto Basophi 06-21-2 0.0 0-0.2 complet ls # 013 K/MM3 ed Bld 12:40 Auto URINALYSIS/COMPLETE (12-31-2012 14:00) URINE YELLOW YELLOW complet COLOR 013 ed 14:00 URINE CLEAR CLEAR complet APPEARA 013 ed NCE 14:00 URINE NEGATIV NEG complet GLUCOSE 013 E ed - 14:00 DIPSTIC K URINE NEGATIV NEG complet BILIRUB 013 E ed IN - 14:00 DIPSTIC K URINE NEGATIV NEG complet KETONE 013 E mg/dL ed 14:00 URINE Less 1.005-1 complet SPECIFI 013 than or .030 ed C 14:00 equal GRAVITY to 1.005 URINE TRACE-I NEG complet BLOOD 013 NTACT ed 14:00 URINE 7.5 UNK 5.0-8.5 complet PH 013 ed 14:00 URINE NEGATIV NEG complet PROTEIN 013 E mg/dL ed - 14:00 DIPSTIC K URINE 0.2 NEG complet UROBILI 013 E.U./dL ed NOGEN - 14:00 DIPSTIC K URINE NEGATIV NEG complet NITRATE 013 E ed - 14:00 DIPSTIC K URINE NEGATIV NEG complet LEUK 013 E ed ESTERAS 14:00 E URINE OCC 0 complet RBC 013 rbc/hpf ed 14:00 URINE OCC 0-5 complet SQUAMOU 013 #/hpf ed S CELLS 14:00 COMPREHENSIVE METABOLIC PANEL (12-31-2012 13:00) Glucose 98 74-106 complet 013 mg/dL ed Bld-mCn 13:00 c BUN 9 mg/dL 7-18 complet Bld-mCn 013 ed c 13:00 Creat 0.8 0.6-1.0 complet SerPl-m 013 mg/dL ed Cnc 13:00 ESTIMAT 38 50-200 complet ED 013 ML/MIN ed CREATIN 13:00 INE CLEARAN CE GFR 69 59- complet (ESTIMA 013 ML/MIN ed SPARKLE) 13:00 Sodium 133 136-145 complet SerPl-s 013 mmoL/L ed Cnc 13:00 Potassi 4.1 3.5-5.1 complet um 013 mmoL/L ed SerPl-s 13:00 Cnc Chlorid 99 98-107 complet e 013 mmoL/L ed SerPl-s 13:00 Cnc CO2 28 21.0-32 complet SerPl-s 013 mmoL/L .0 ed Cnc 13:00 Calcium 8.5 8.5-10. complet 013 mg/dL 1 ed SerPl-m 13:00 Cnc Prot 6.4 6.4-8.2 complet SerPl-m 013 gm/dL ed Cnc 13:00 Albumin 3.2 3.4-5.0 complet 013 gm/dL ed SerPl-m 13:00 Cnc Globuli 03-27-2 3.2 1.3-3.2 complet n 013 gm/dL ed Ser-mCn 13:00 c Albumin 12-31-2 1.0 UNK 1.1-1.8 complet /Glob 013 ed SerPl-m 13:00 Rto Bilirub 12-31-2 0.4 0.2-1.0 complet 013 mg/dL ed SerPl-m 13:00 Cnc AST 12-31-2 51 U/L 15-37 complet SerPl-c 013 ed Cnc 13:00 ALT 12-31-2 72 U/L 30-65 complet SerPl-c 013 ed Cnc 13:00 ALP 12-31-2 100 U/L 50-136 complet SerPl-c 013 ed Cnc 13:00 Digoxin SerPl-mCnc (12-31-2012 13:00) Digoxin 12-31-2 0.13 1.15-2. complet 013 ng/mL 56 ed SerPl-m 13:00 Cnc Amylase SerPl-cCnc (12-31-2012 13:00) Amylase 2 121 U/L 25-115 complet 013 ed SerPl-c 13:00 Cnc LIPASE (12-31-2012 13:00) LIPASE 223 U/L 73-393 complet 013 ed 13:00 CBC with AUTO DIFF (12-31-2012 13:00) WBC # 12-31-2 5.3 4.8-10. complet Bld 013 K/MM3 8 ed Auto 13:00 RBC # 12-31-2 3.90 4.2-5.4 complet Bld 013 M/mm3 ed Auto 13:00 Hgb 12-31-2 12.4 12.2-16 complet Bld-mCn 013 g/dL .2 ed c 13:00 Hct Fr 12-31-2 37.1 % 37.0-47 complet Bld 013 .0 ed 13:00 MCV RBC 12-31-2 94.9 fl 82.2-97 complet 013 .8 ed 13:00 MCH RBC 12-31-2 31.7 pg 27-31.2 complet Qn 013 ed Auto 13:00 MEAN 12-31-2 33.4 31.8-35 complet CORPUSC 013 g/dl .4 ed ULAR 13:00 HGB CONC RDW RBC 03-27-2 13.4 % 11.5-17 complet Auto 013 .5 ed 13:00 Platele 237 142-424 complet t Bld 013 K/mm3 ed Ql 13:00 Manual MEAN 8.1 fl 7.4-10. complet PLATELE 013 4 ed T 13:00 VOLUME Granulo 69.6 % 37.0-80 complet cytes 013 .0 ed Fr Bld 13:00 Auto LYMPH % 23.1 % 10-50.0 complet 013 ed 13:00 Monocyt 6.1 % 1.7-9.3 complet es Fr 013 ed Bld 13:00 Auto Eosinop 2 0.9 % 0.1-12. complet hil Fr 013 0 ed Bld 13:00 Auto Basophi 2 0.3 % 0.1-2.0 complet ls Fr 013 ed Bld 13:00 Auto Granulo 3.7 1.8-7.8 complet cytes # 013 K/mm3 ed Bld 13:00 Auto Lymphoc 2 1.2 0.7-4.5 complet ytes Fr 013 K/mm3 ed Bld 13:00 Auto Monocyt 12-31-2 0.3 0.1-1.0 complet es # 013 K/mm3 ed Bld 13:00 Auto Eosinop 12-31-2 0.1 0.0-0.4 complet hil # 013 K/mm3 ed Bld 13:00 Auto Basophi 2 0.0 0-0.2 complet ls # 013 K/MM3 ed Bld 13:00 Auto Procedures Procedure DOS Code Location Performer Comment PRTBLE [id number] KALANI URIARTE GASEOUS 6 HOME HOME O2 SYS MEDICAL MEDICAL RENT[facility]2 CONC 1 [id number] KALANI URIARTE [place] 6 HOME HOME 85%/>02 MEDICAL MEDICAL CONC AT EQUIPME EQUIPME [facility] FLW RATE BASIC 11816 [facility] METABOLIC 6 [facility] [employer] TOTAL Encounters Encounter Start End Date Code Location Performer Type Date Inpatient AMBERLY Costello MD ([place]) 3 01:18 3 13:15 [facility] DEONDRE Trimble MD (ER) 3 12:33 3 14:25 [facility] Emergency DEONDRE Peterson MD (ER) 3 12:47 3 16:06 [facility]
--- OUTSIDE RECORDS SUMMARY | 2017-07-16 07:44 | External Medical Summary Rpt ---
Author Author , GEOFF TELLEZ Address Unknown Phone [email or web address] Care Team Providers Care Stone Cutter Name Role Phone Zayra WALLER, Unavailable Unavailable Zayra Costello MD, Unavailable Unavailable Gila Joshi PRESERVATIVE FILLER MACHINE OPERATOR, Unavailable Unavailable Nimco Joshi APRN [facility] Unavailable Unavailable HOLDINGS, [facility] Unavailable Unavailable HOLDINGS, [facility] Unavailable Unavailable EQUIPME, [facility] Unavailable Unavailable EQUIPME, [facility] Purpose Continuity of Care Document - 12-31-2012 through 2016 Problems Code Diagnosis DOS Provider Status J449 CHRONIC 12-24-2015 [facility] OBSTRUCTIVE [place]ER PULMONARY MEDICAL DISEASE UNS EQUIPME J439 EMPHYSEMA 12-16-2015 [facility] UNSPECIFIED [facility] 244.9 Hypothyroid [facility] 276.8 Hypokalemia [facility] [id number] Chest pain [facility] 427.9 Atrial [place] arrhythmia [facility] 486 Pneumonia [facility] 496 Acute [facility] chronic obstructive airways disease 518.89 Chronic [place] lung [facility] Allergies, Adverse Reactions, Alerts Type Drug Allergy [...] 00 07 2 No SO 18 -1 DC 50 2- Lo OL 77 20 ng OL 13 13 er 0 FU Ac MA ti RA ve TE 5 MG TA B DC 00 07 2 No ED 05 -1 [...] 00 07 0 No SO 18 -1 DC 50 1- Lo OL 77 20 ng [...] D ve DR 40 MG TA B NC 11 07 6 No RA 52 -0 [...] 00 07 3 No SO 18 -0 DC 50 8- Lo OL 77 20 ng [...] O2 SYS MEDICAL MEDICAL RENT; EQUIPME [facility] ASK O2 CONC 1 E1390 [facility] [place] 6 HOME HOME 85%/>02 MEDICAL MEDICAL CONC AT EQUIPME EQUIPME [facility] FLW RATE BASIC 83992 LAB [facility] METABOLIC 6 [facility] PANEL HOLDINGS HOLDINGS CALCIUM TOTAL Encounters Encounter Start End Date Code Location Performer Type Date Inpatient AMBERLY Costello MD (IN) 3 01:18 3 13:15 [facility] Emergency DEONDRE Trimble MD (ER) 3 12:33 3 14:25 [facility] Emergency DEONDRE Peterson MD (ER) 3 12:47 3 16:06 [facility]
--- OUTSIDE RECORDS SUMMARY | 2017-07-16 07:45 | External Medical Summary Rpt ---
Author Author , GEOFF TELLEZ Address Unknown Phone [email or web address] Care [email or web address] Providers Care Desk Pen Set Assembler Name Role Phone [facility] Unavailable Unavailable HOLDINGS, [facility] Unavailable Unavailable HOLDINGS, [facility] Unavailable Unavailable EQUIPME, [facility] Unavailable Unavailable EQUIPME, [facility] Purpose Continuity of Care Document - 12-16-2015 through 2016 Problems Code Diagnosis DOS Provider Status J449 CHRONIC 12-24-2015 [facility] PULMONARY MEDICAL DISEASE UNS EQUIPME J439 EMPHYSEMA 12-16-2015 [facility] UNSPECIFIED [facility] Procedures Procedure DOS Code Location Performer Comment PRTBLE [id number] [facility] URIARTE GASEOUS 6 HOME HOME O2 SYS MEDICAL MEDICAL RENT; EQUIPME EQUIPME FLWMTR HUMIDFR&M ASK O2 CONC 1 E1390 [facility] [place] 6 HOME HOME 85%/>02 MEDICAL MEDICAL CONC AT EQUIPME EQUIPME [facility] FLW RATE BASIC 60032 LAB [facility] METABOLIC 6 [facility] PANEL HOLDINGS HOLDINGS CALCIUM TOTAL
--- OUTSIDE RECORDS SUMMARY | 2017-07-16 07:45 | External Medical Summary Rpt ---
Author Author [employer], [employer] Organization [employer] Address Unknown Phone Unavailable Results Basic metabolic panel in Blood Observa Value Referen Units Interpr Notes Date tion ce etation Range Urea 7 - 18 mg/dL High No Sep 15 nitrogen informati 2017 6:00 [Mass/vol on in AM ume] in source Serum or data Plasma Calcium 8.5 - mg/dL Normal No Sep 15 [Mass/vol 10.1 informati 2017 6:00 ume] in on in AM Serum or source Plasma data Chloride 98 - 107 mmoL/L Normal No Sep 15 [Moles/vo informati 2017 6:00 lume] in on in AM Serum or source Plasma data Carbon 21.0 - mmoL/L High No Sep 15 dioxide, 32.0 informati 2017 6:00 total on in AM [Moles/vo source lume] in data Serum or Plasma Creatinin 0.55 - mg/dL No No Sep 15 e 1.02 informati informati 2017 6:00 [Mass/vol on in on in AM ume] in source source Serum or data data Plasma Creatinin 50 - 200 ML/MIN Low No Sep 15 e renal informati 2017 6:00 clearance on in AM source predicted data by Cockcroft -Gault formula Estimated 59- ML/MIN Low REFERENCE Sep 15 RANGE: 2017 6:00 glomerula >60 AM r ML/MIN/1. filtratio 73 SQUARE n rate METERSIf (GF this patient is -A merican, then multiply theresult by 1.210. Glucose 74 - 106 mg/dL Low No Sep 15 [Mass/vol informati 2017 6:00 ume] in on in AM Serum or source Plasma data Potassium 3.5 - 5.1 mmoL/L Normal No Sep 15 informati 2017 6:00 [Moles/vo on in AM lume] in source Serum or data Plasma Sodium 136 - 145 mmoL/L Normal No Sep 15 [Moles/vo informati 2017 6:00 lume] in on in AM Serum or source Plasma data Troponin I.cardiac [Mass/volume] in Serum or Plasma Observa Value Referen Units Interpr Notes Date tion ce etation Range Troponin 0.00 - ng/mL Normal No Sep 15 I.cardiac 0.06 inform2016 2:35 on in AM [Mass/vol source ume] in data Serum or Plasma Thyrotropin [Units/volume] in Serum or Plasma Observa Value Referen Units Interpr Notes Date ti ce etation Range Thyrotrop 0.358 - uIU/ml No No Sep 14 in 3.740 informati informati 2016 8:02 [Units/vo on in on in PM lume] in source source Serum or data data Plasma Urate [Mass/volume] in Serum or Plasma Observa Value Referen Units Interpr Notes Date ti ce etation Range Urate 2.6 - 7.2 mg/dL High No Sep 14 [Mass/vol informati 2017 8:02 ume] in on in PM Serum or source Plasma data CBC W Auto Differential panel in Blood Observa Value Referen Units Interpr Notes Date tion ce etation Range Basophils 0 - 0.2 K/MM3 Normal No Sep 14 inform2016 2:00 [#/volume on in PM ] in source Blood by data Automated count Basophils 0.1 - 2.0 % Normal No Sep 14 /100 informati 2016 2:00 leukocyte on in PM s in source Blood by data Automated count Eosinophi 0.0 - 0.4 K/mm3 Normal No Sep 14 ls informati 2016 2:00 [#/volume on in PM ] in source Blood by data Automated count Eosinophi 0.1 - % Normal No Sep 14 ls/100 12.0 informati 2016 2:00 leukocyte on in PM s in source Blood by data Automated count Granulocy 1.8 - 7.8 K/mm3 Normal No Sep 14 carlos informati 2016 2:00 [#/volume on in PM ] in source Blood by data Automated count Granulocy 37.0 - % Normal No Sep 14 carlos/100 80.0 informati 2016 2:00 leukocyte on in PM s in source Blood by data Automated count Hematocri 37.0 - % Low No Sep 14 t [Volume 47.0 informati 2016 2:00 on in PM Fraction] source of Blood data Hemoglobi 12.2 - g/dL Low No Sep 14 n 16.2 informati 2017 2:00 [Mass/vol on in PM ume] in source Blood data Lymphocyt 0.7 - 4.5 K/mm3 Normal No Sep 14 es inform 2017 2:00 [#/volume on in PM ] in source Unspecifi data ed specimen by Automated count Lymphocyt 10 - 50.0 % Normal No Sep 14 es inform 2017 2:00 [#/volume on in PM ] in source Unspecifi data ed specimen by Automated count Erythrocy 27 - 31.2 pg Normal No Sep 14 te mean informati 2017 2:00 corpuscul on in PM ar source hemoglobi data n [Entitic mass] Erythrocy 31.8 - g/dl Normal No Sep 14 te mean 35.4 informati 2017 2:00 corpuscul on in PM ar source hemoglobi data n concentra tion [Mass/vol ume] by Automated count Erythrocy 82.2 - fl Normal No Sep 14 te mean 97.8 informati 2016 2:00 corpuscul on in PM ar volume source [Entitic data volume] by Automated count Monocytes 0.1 - 1.0 K/mm3 Normal No Sep 14 inform2016 2:00 [#/volume on in PM ] in source Blood by data Automated count Monocytes 1.7 - 9.3 % Normal No Sep 14 /100 informati 2017 2:00 leukocyte on in PM s in source Blood by data Automated count Platelet 7.4 - fl Normal No Sep 14 mean 10.4 informati 2016 2:00 volume on in PM [Entitic source volume] data in Blood by Automated count Platelets 142 - 424 K/mm3 No No Sep 14 informati informati 2017 2:00 [#/volume on in on in PM ] in source source Blood data data Erythrocy 4.2 - 5.4 M/mm3 Low No Sep 14 carlos informati 2017 2:00 [#/volume on in PM ] in source Amniotic data fluid Erythrocy 11.5 - % Normal No Sep 14 te 17.5 informati 2016 2:00 distribut on in PM ion width source [Entitic data volume] by Automated count Leukocyte 4.8 - K/MM3 Normal No Sep 14 s 10.8 informati 2016 2:00 [#/volume on in PM ] in source Blood data
--- OUTSIDE RECORDS SUMMARY | 2017-07-16 07:45 | External Medical Summary Rpt ---
Author Author , GEOFF TELLEZ Address Unknown Phone [email or web address] Immunization Name Date Rout CVX Reac Dose Comm Prov Is Faci e tion ent ider Refu lity Give sed n Infl 10-0 135 0.5 Hist FAMC No FAMC uenz 3-20 mL oric AREP AREP a, 17 al SCOU SCOU High Info rmat Dose ion - Sour ce Unsp ecif ied Td 03-0 Intr 9 999 Hist H196 No H196 (taran 7-19 amus oric lt), 97 cula al r Info adso rmat rbed ion - Sour ce Unsp ecif ied
--- OUTSIDE RECORDS SUMMARY | 2017-07-16 07:45 | External Medical Summary Rpt ---
Author Author , GEOFF TELLEZ Address Unknown Phone [email or web address] Immunization Name Date Rout CVX Reac Dose [...]
--- OUTSIDE RECORDS SUMMARY | 2017-07-16 07:45 | External Medical Summary Rpt ---
Author Author , GEOFF TELLEZ Address Unknown Phone [email or web address] Care Team Providers Care Shoe Cleaner Name Role Phone [facility] Unavailable [...] AT EQUIPME EQUIPME PRSC FLW RATE BASIC [address] [facility] 6 [facility] PANEL HOLDINGS HOLDINGS CALCIUM TOTAL
== END 2017-06-21 09:55 | disposition home or self-care (01) ==
LOC: ER 13:30 → 2ND 15:07 → ER 15:07 → 2ND 15:38
PROVIDERS: Emergency Medicine; Family Medicine
DX: E87.5 Hyperkalemia (principal); N28.9 Disorder of kidney and ureter, unspecified; I48.0 Paroxysmal atrial fibrillation; R55 Syncope and collapse; E86.0 Dehydration; J44.9 Chronic obstructive pulmonary disease, unspecified; E03.9 Hypothyroidism, unspecified; H34.00 Transient retinal artery occlusion, unspecified eye; K21.9 Gastro-esophageal reflux disease without esophagitis; I11.0 Hypertensive heart disease with heart failure; I50.9 Heart failure, unspecified; I25.10 Atherosclerotic heart disease of native coronary artery without angina pectoris; D64.9 Anemia, unspecified; Z79.82 Long term (current) use of aspirin; Z99.81 Dependence on supplemental oxygen; Z79.899 Other long term (current) drug therapy; Z85.828 Personal history of other malignant neoplasm of skin
CPT/HCPCS: G0378